=== PATIENT | male | born 1990 | race Caucasian/White ===

== ENCOUNTER 2025-04-13 17:37 | Emergency (ER) | payer OTHER ==
[~2025-04-13] VITALS: Ht 180.3 cm; Wt 83.7 kg
[2025-04-14] MEDS ORDERED: MEDR4PAK PO (00:44)
[2025-04-14] MEDS ORDERED: TIZA4CAP PO (00:44)
[2025-04-14] MEDS: KETOROLAC 30 MG/ML 1 ML VIAL IM ONE (01:21)
[2025-04-14 01:31] VITALS: BP 138/85; TEMP 97.5; O2SAT 99
== END 2025-04-14 01:34 | disposition home or self-care (01) ==
LOC: M ED 17:37
DX: M75.31 Calcific tendinitis of right shoulder (principal); Z79.899 Other long term (current) drug therapy
CPT/HCPCS: 96372; 99283; J1885

== ENCOUNTER 2025-04-16 16:35 | Emergency (ER) | payer OTHER ==
[~2025-04-16] VITALS: Ht 177.8 cm; Wt 83.6 kg
[~2025-04-16 16:35] MED LIST: MEDR4PAK PO; TIZA4CAP PO
[2025-04-16 16:39] VITALS: BP 137/77; TEMP 99.2; O2SAT 96
[2025-04-16] MEDS ORDERED: TRAM50TA2 PO (17:38)
[2025-04-16] MEDS: traMADol 50 MG TAB PO ONE (17:41)
== END 2025-04-16 17:45 | disposition home or self-care (01) ==
LOC: M ED 16:35
DX: M75.41 Impingement syndrome of right shoulder (principal); G54.0 Brachial plexus disorders; Z79.899 Other long term (current) drug therapy